=== PATIENT | female | born 1995 | race Caucasian/White ===

== ENCOUNTER 2023-06-01 11:30 | Emergency (ER) | payer SELFPAY ==
[2023-06-01] MEDS: Ondansetron 4 MG Tab.DIS PO ONE (13:44)
== END 2023-06-01 14:45 | disposition home or self-care (01) ==
LOC: JP.ED 11:30
DX: A08.4 Viral intestinal infection, unspecified (principal); E03.9 Hypothyroidism, unspecified; F17.210 Nicotine dependence, cigarettes, uncomplicated; Z86.16 Personal history of COVID-19
CPT/HCPCS: 99283; Q0162